=== PATIENT | female | born 1950 | race Asian ===

== ENCOUNTER 2018-11-10 15:56 | Emergency (ER) | payer OTHER ==
[~2018-11-10] VITALS: Ht 160 cm; Wt 61.2 kg
[2018-11-10 16:04] VITALS: BP_SYST 148
[2018-11-10] MEDS ORDERED: MORPHINE 4 MG/ML INJ. SYRINGE IVP ONE (16:30)
[2018-11-10] MEDS ORDERED: ONDANSETRON HCL 4 MG/2 ML VIAL IVP ONE (16:30)
[2018-11-10 17:51] VITALS: BP_SYST 122
== END 2018-11-10 17:51 | disposition home or self-care (01) ==
LOC: SED 15:56
DX: M16.12 Unilateral primary osteoarthritis, left hip (principal); K21.9 Gastro-esophageal reflux disease without esophagitis; Z88.1 Allergy status to other antibiotic agents
CPT/HCPCS: 73502; 96374; 96375; 99283; J2270; J2405